=== PATIENT | female | born 1965 | race Caucasian/White ===

== ENCOUNTER 2016-11-16 09:00 | Day surgery (SDC) | payer OTHER, MEDICARE ==
[~2016-11-16 09:00] MED LIST: FENTANYL 250 MCG/5 ML AMP IV PRN; LACTATED RINGERS 1,000 ML IV SCH; MIDAZOLAM HCL 5 MG/5 ML VIAL IV PRN
[2016-11-16] MEDS ORDERED: IV START KIT ONE (09:11)
[2016-11-16] MEDS ORDERED: LACTATED RINGERS 1,000 ML ONE (09:11)
[2016-11-16] MEDS ORDERED: MIDAZOLAM HCL 1 MG/ML 2ML VIAL ONE (09:36)
[2016-11-16] MEDS ORDERED: MIDAZOLAM HCL 5 MG/5 ML VIAL ONE (10:01)
[2016-11-16] MEDS ORDERED: FENTANYL 5 ML ONE (10:02)
[2016-11-16] MEDS ORDERED: PROPOFOL 20 ML IV ONE (10:30)
== END 2016-11-16 11:46 | disposition home or self-care (01) ==
LOC: SDC 09:00
PROVIDERS: ATTEND Internal Medicine Gastroenterology
PROC: 0DJD8ZZ Inspection of Lower Intestinal Tract, Via Natural or Artificial Opening Endoscopic (ICD-10-PCS; principal; 2016-11-16)
DX: Z12.11 Encounter for screening for malignant neoplasm of colon (principal); I10 Essential (primary) hypertension; F32.9 Major depressive disorder, single episode, unspecified; F41.9 Anxiety disorder, unspecified; M79.1 Myalgia; Z88.8 Allergy status to other drugs, medicaments and biological substances
CPT/HCPCS: 45378; J3010; J2250 ×2; J7120